=== PATIENT | male | born 1955 | race Caucasian/White ===

== ENCOUNTER 2024-03-25 17:02 | Emergency (ER) | payer MEDICARE ==
[~2024-03-25] VITALS: Ht 185.4 cm; Wt 81.6 kg
[2024-03-25 17:10] VITALS: BP_SYST 155; PULSE 62; RESP 22; TEMP 98.3; O2SAT 98
[2024-03-25] MEDS ORDERED: ASPIRIN 81 MG TAB.CHEW PO ONE (17:30)
[2024-03-25 17:51] LABS: BASOPHILS # (AUTO) 0.1 K/uL (0.0-0.2); BASOPHILS % (AUTO) 0.7 % (0.0-2.0); EOSINOPHILS # (AUTO) 0.2 K/uL (0.0-0.4); EOSINOPHILS % (AUTO) 2.1 % (0.0-4.0); HEMATOCRIT 39.8 % (36-54); HEMOGLOBIN 13.7 g/dL (14.0-18.0); LYMPHOCYTES # (AUTO) 2.1 K/uL (1.0-5.5); LYMPHOCYTES % (AUTO) 22.3 % (20.5-51.5); MEAN CORPUSCULAR HEMOGLOBIN 32 pg (27-31); MEAN CORPUSCULAR HGB CONC 34 % (32-36); MEAN CORPUSCULAR VOLUME 92 fL (79.0-98.0); MONOCYTES # (AUTO) 0.5 K/uL (0.0-1.0); MONOCYTES % (AUTO) 5.5 % (1.7-9.3); NEUTROPHILS # (AUTO) 6.7 K/uL (1.8-7.7); NEUTROPHILS % (AUTO) 69.4 % (40.0-70.0); PLATELET COUNT (AUTO) 226 K/uL (130-430); RED BLOOD CELL COUNT(AUTO) 4.34 MIL/uL (4.2-6.2); RED CELL DISTRIBUTION WIDTH 13.6 % (9.0-15.0); WHITE BLOOD COUNT (AUTO) 9.6 K/uL (4.8-10.8)
[2024-03-25] MEDS ORDERED: LORA-259 PO (17:53)
[2024-03-25] MEDS ORDERED: BUDE10.32 INH (17:53)
[2024-03-25] MEDS ORDERED: PREG75CA PO (17:53)
[2024-03-25] MEDS ORDERED: OMEP20TA20 PO (17:53)
[2024-03-25] MEDS ORDERED: ALBU0.63 NEB (17:53)
[2024-03-25] MEDS ORDERED: BENZ100C92 PO (17:53)
[2024-03-25] MEDS ORDERED: METO25TA6 PO (17:53)
[2024-03-25 18:07] LABS: ANION GAP 4 (5-15); CALCIUM 8.8 mg/dL (8.4-11.0); CARBON DIOXIDE 31 mmol/L (23-29); CHLORIDE 103 mmol/L (98-107); CREATININE 0.95 mg/dL (0.55-1.30); GFR AFRICAN AMERICAN 102 mL/min (>90); GLUCOSE 109 mg/dL (74-106); POTASSIUM 4.6 mmol/L (3.5-5.1); SODIUM SERUM 138 mmol/L (136-145); UREA NITROGEN, BLOOD 8 mg/dL (8-21)
[2024-03-25 18:11] LABS: GFR NON AFRICAN-AMERICAN 84 mL/min (>90)
[2024-03-25 20:11] VITALS: BP_SYST 123; PULSE 63; RESP 20; TEMP 97.6; O2SAT 96
== END 2024-03-25 20:11 | disposition home or self-care (01) ==
LOC: SED 17:02
DX: R07.89 Other chest pain (principal); Z79.899 Other long term (current) drug therapy; Z79.2 Long term (current) use of antibiotics
CPT/HCPCS: 36415; 71045; 80048; 83880; 84484; 85025; 93005; 99291